=== PATIENT | male | born 1980 | race Caucasian/White ===

== ENCOUNTER 2023-01-13 18:31 | Emergency (ER) | payer OTHER ==
[~2023-01-13] VITALS: Ht 172.7 cm; Wt 73.0 kg
[2023-01-13 18:43] VITALS: BP 158/103
--- NOTE | 2023-01-13 18:56 | NUR ---
C/O RIGHT FOOT NUMBNESS BETWEEN 4TH & 5TH TOES X 1 WEEK. DENIES TRAUMA OR INJURY. PMH: DENIES
[2023-01-13] MEDS ORDERED: IBUP-1842 PO (19:49)
== END 2023-01-13 20:10 | disposition home or self-care (01) ==
LOC: MED 18:31
DX: G57.81 Other specified mononeuropathies of right lower limb (principal)
CPT/HCPCS: 73660; 99283